=== PATIENT | female | born 1995 | race Caucasian/White ===

== ENCOUNTER 2017-02-28 07:31 | Day surgery (SDC) | payer BC ==
[~2017-02-28] VITALS: Ht 180.3 cm; Wt 72.6 kg
[2017-02-28 07:41] VITALS: BP 131/62; Ht 180.3 cm; Wt 72.6 kg
[2017-02-28 09:04] LABS: HEMOGLOBIN 12.8 g/dL (12-16); MCH 29.2 pg (26.0-34.0); MCHC 32.8 g/dL (31.0-37.0); MEAN PLATELET VOLUME 12.2 fL (7.4-10.4); RBC 4.38 10x6/uL (4.00-5.40); RDW 12.5 % (11.5-14.5); WBC 6.5 10x3/uL (4.8-10.8)
[2017-02-28 09:37] LABS: HCG URINE NEGATIVE (NEGATIVE)
[2017-02-28] MEDS ORDERED: HYDROCODONE-APA1 TAB PO (10:29)
--- NOTE | 2017-02-28 10:48 | NUR ---
1045 LIQUID DIET SERVED
--- NOTE | 2017-02-28 12:56 | NUR ---
1040 SNACK SERVED 1050 DENIES NAUSEA; IV DC'D 1110 DISCHARE INSTRUCRIONS REVIEWED WITH PATIENT; VERBALIZED UNDERSTANDING. TO B/R; VOIDED MOD AMT
--- NOTE | 2017-03-04 10:12 | OP ---
PATIENT NAME: AMISH PRABHAKAR MEDICAL RECORD: [id number] :97 LOCATION:[facility] ADMISSION DATE: SURGEON: YASSINE SOARES MD DATE OF OPERATION: 02/28/2017 Orthopedic Surgery Operative Note PREOPERATIVE DIAGNOSIS: Painful loose bodies in the left prepatellar bursa. POSTOPERATIVE DIAGNOSIS: Painful loose bodies in the left prepatellar bursa. PROCEDURE: Excision of painful loose bodies in the prepatellar bursa. SURGEON: Yassine Soares MD ANESTHESIA: TIVA. INTRAOPERATIVE COMPLICATIONS: None. SUMMARY OF PATHOLOGIC FINDINGS: The patient had a painful harden soft tissue in the prepatellar bursa. OPERATIVE SUMMARY IN DETAIL: After obtaining the appropriate preoperative orthopedic surgery consents as well as anesthetic consultation, evaluation and clearance, the patient was brought to the operating room and placed on the operating table in supine position. After adequate TIVA anesthesia was administered. The area of concern was locally infiltrated with 0.25% Marcaine with epinephrine and lidocaine mixture. An incision was made into the prepatellar bursa where the patient's hard fibers loose bodies were found, they were not attached and they were removed easily. After these were removed, the entire area was irrigated and closed with 2-0 Vicryl followed by 4-0 Prolene. Pressure sterile dressings were applied. The patient was awakened, taken to recovery room in stable condition. All final needle and sponge counts were correct. TRANSINT:[id number] Voice Confirmation ID: [id number] DOCUMENT ID: [id number] YASSINE SOARES MD at 1012 CC: [id number] DICTATION DATE: 02/28/17 1027 NAIL WELTER: 02/28/17 1210 [facility] 02/28/17 [id number] [place] [address]
== END 2017-02-28 11:15 | disposition home or self-care (01) ==
LOC: D.OPS 07:31 → D.PAN 10:15 → D.OPS 11:15 → D.PAN 11:45
PROVIDERS: Anesthesiology; Orthopaedic Surgery
DX: M23.42 Loose body in knee, left knee (principal)

== ENCOUNTER → 2017-09-03 14:36 | Outpatient (CLI) | payer BC ==
[2017-02-28 07:41] VITALS: BMI 22.3
[~2017-09-03 14:36] MED LIST: BENTYL10 MG PO; HYDROCODONE-APA1 TAB PO; OMEPRAZOLE40 MG PO
== END | disposition home or self-care (01) ==
LOC: D.US 14:36
DX: R11.2 Nausea with vomiting, unspecified (principal)

== ENCOUNTER → 2017-09-04 15:38 | Outpatient (CLI) | payer BC ==
[2017-02-28 07:41] VITALS: BMI 22.3
== END | disposition home or self-care (01) ==
LOC: D.CT 15:38
DX: R10.9 Unspecified abdominal pain (principal)

== ENCOUNTER → 2017-10-04 10:47 | Outpatient (CLI) | payer BC ==
[2017-02-28 07:41] VITALS: BMI 22.3
== END | disposition home or self-care (01) ==
LOC: D.CT 09-14 09:00
DX: R10.9 Unspecified abdominal pain (principal)

== ENCOUNTER 2017-11-06 10:18 | Day surgery (SDC) | payer BC ==
[~2017-11-06] VITALS: Ht 177.8 cm; Wt 70.5 kg
[~2017-11-06 10:18] MED LIST changes: -BENTYL10 MG PO; -OMEPRAZOLE40 MG PO
[2017-11-06 11:56] LABS: HEMATOCRIT 41.7 % (36.0-48.0); HEMOGLOBIN 13.7 g/dL (12-16); MCH 29.1 pg (26.0-34.0); MCHC 32.9 g/dL (31.0-37.0); MCV 88.7 fL (80.0-100.0); MEAN PLATELET VOLUME 11.2 fL (7.4-10.4); RBC 4.7 10x6/uL (4.00-5.40); RDW 13.1 % (11.5-14.5); WBC 8.8 10x3/uL (4.8-10.8)
[2017-11-06] MEDS ORDERED: OMEPRAZOLE40 MG PO (12:19)
[2017-11-06 12:20] VITALS: Ht 177.8 cm; Wt 70.5 kg
[2017-11-06 12:31] LABS: HCG URINE NEGATIVE (NEGATIVE)
--- NOTE | 2017-11-06 15:27 | NUR ---
1520 DISCHARGE INSTRUCTIONS COMPLETE. PT HAS NO QUESTIONS OR CONCERNS AT THIS TIME. ESCORTED OUT BY SONYA.
--- NOTE | 2017-11-14 11:51 | OP ---
PATIENT NAME: AMISH PRABHAKAR MEDICAL RECORD: [id number] :97 LOCATION:[facility] ADMISSION DATE: SURGEON: NORMA SUMMERS DO DATE OF OPERATION: 11/06/2017 PROCEDURE: EGD with biopsies. INDICATIONS FOR PROCEDURE: Nausea and vomiting, generalized abdominal pain, elevated liver enzymes, unspecified lymphadenitis, and abnormal weight loss. SCOPE: Olympus video gastroscope. MEDICATIONS: Propofol 180 mg IV per anesthesia. ESTIMATED BLOOD LOSS: Minimal. COMPLICATIONS: None. FINDINGS: Informed consent was given. The patient was made comfortable with the above medication. After reaching an adequate level of sedation by slow IV push, the patient was placed on her left side. The endoscope was then advanced under direct visualization through the mouth to the third portion of the duodenum. The scope was slowly withdrawn as the mucosa was carefully examined. The entire esophagus including the GE junction appeared normal. The endoscope was advanced beyond the GE junction into the stomach and retroflexed to view the cardia and fundus which appeared normal. There was no evidence of a hiatal hernia. The body of the stomach as well as the antrum and prepyloric region appeared normal without erosions, ulcerations, or granularity. Random biopsies were taken to submit for histology and to rule out H. pylori. The endoscope was advanced beyond the pylorus into the small intestine. The entire examined duodenum appeared normal without villous atrophy or appearances of an inflammation. Random biopsies were taken to submit for histopathology. The endoscope was withdrawn from the patient. The patient tolerated the procedure well and there were no complications. IMPRESSION: Normal upper endoscopy. PLAN AND RECOMMENDATIONS: 1. Discharge home when recovery parameters are met. 2. Follow up biopsy specimen results. 3. Continue current diet. 4. Continue current medications. Make sure the patient is taking 40 mg of omeprazole daily and continue this for 4-6 weeks. 5. If the biopsies are normal and the patient continues to experience nausea, vomiting and diarrhea, I would recommend a colonoscopy. It is possible that the patient's symptoms is related to mesenteric adenitis which has been resolving since being treated. TRANSINT:[id number] Voice Confirmation ID: [id number] DOCUMENT ID: [id number] OPERATIVE REPORT [id number] AMISH PRABHAKAR NORMA SUMMERS DO at 1151 CC: [id number] DICTATION DATE: 11/06/17 1432 APPLICATION PERFORMANCE ENGINEER: 11/06/17 1505 [facility] 11/06/17 [facility] [address] [place] [address]
== END 2017-11-06 15:20 | disposition home or self-care (01) ==
LOC: D.OPS 10:18
PROVIDERS: Anesthesiology; Internal Medicine Gastroenterology
DX: R11.2 Nausea with vomiting, unspecified (principal); R74.8 Abnormal levels of other serum enzymes; I88.9 Nonspecific lymphadenitis, unspecified; R63.4 Abnormal weight loss; K21.9 Gastro-esophageal reflux disease without esophagitis; Z01.812 Encounter for preprocedural laboratory examination

== ENCOUNTER → 2017-11-14 07:21 | Outpatient (CLI) | payer BC ==
[2017-11-06 12:20] VITALS: BMI 22.2
[~2017-11-14 07:21] MED LIST changes: +BENTYL10 MG PO; +OMEPRAZOLE40 MG PO
== END | disposition home or self-care (01) ==
LOC: D.NM 11-13 13:00
DX: R11.2 Nausea with vomiting, unspecified (principal)

== ENCOUNTER → 2017-11-21 10:23 | Outpatient (CLI) | payer BC ==
[2017-11-06 12:20] VITALS: BMI 22.2
[2017-11-21 11:29] LABS: ALBUMIN 4.5 g/dL (3.4-5.0); ALKALINE PHOSPHATASE 106 U/L (46-116); ALT (SGPT) 22 U/L (10-68); BILIRUBIN - TOTAL 0.52 mg/dL (0.2-1.3); CALC OSMOLALITY 282 mosm/kg (275-300); CALCIUM 9.7 mg/dL (8.5-10.1); CHLORIDE - SERUM 104 mmol/L (98-107); GLUCOSE 90 mg/dL (74-106); LIPASE 94 U/L (73-393); POTASSIUM - SERUM 4.1 mmol/L (3.5-5.1); PROTEIN - SERUM 7.7 g/dL (6.4-8.2); SODIUM 142 mmol/L (136-145); UREA NITROGEN 13 mg/dL (7-18); eGFR NON AFRICAN AMERICAN 75 mL/min (90-120)
== END | disposition home or self-care (01) ==
LOC: D.LAB 10:23 → D.NM 10:45
PROVIDERS: Internal Medicine Gastroenterology
DX: R19.7 Diarrhea, unspecified (principal); R11.2 Nausea with vomiting, unspecified; R10.9 Unspecified abdominal pain

== ENCOUNTER 2017-12-16 06:31 | Day surgery (SDC) | payer BC ==
[~2017-12-16] VITALS: Ht 177.8 cm; Wt 70.0 kg
--- NOTE | ~2017-12-16 | OP ---
PATIENT NAME: AMISH PRABHAKAR MEDICAL RECORD: [id number] :97 LOCATION:[facility] ADMISSION DATE: SURGEON: NORMA SUMMERS DO DATE OF OPERATION: 12/16/2017 PROCEDURE: Colonoscopy with biopsies. INDICATION FOR PROCEDURE: 1. Generalized abdominal pain, history of lymphadenitis on CT scan, status post antibiotic therapy. 2. Abnormal weight loss. 3. Nausea and vomiting. SCOPE: Olympus video pediatric colonoscope. MEDICATIONS: Propofol 340 mg IV per anesthesia. WITHDRAWAL TIME: 10 minutes. ESTIMATED BLOOD LOSS: Minimal. COMPLICATIONS: None. FINDINGS: Informed consent was given. The patient was made comfortable with the above medication. After reaching an adequate level of sedation by slow IV push, the patient was placed on her left side. A digital rectal examination was performed and was normal. The endoscope was then advanced under direct visualization through the rectum to the terminal ileum. The scope was slowly withdrawn and mucosa was carefully examined. The prep quality was good. There were no polyps, diverticula, ulcers, or other abnormalities visualized on today's examination. Stool was collected during the examination to submit for infectious purposes and random biopsies were taken to submit for histopathology to rule out microscopic colitis. Retroflexion was performed in the rectum with a normal-appearing rectal wall. The endoscope was then withdrawn from the patient. The patient tolerated the procedure well and there were no complications. IMPRESSION: Normal colonoscopy to terminal ileum. Biopsies were taken and stool was collected. PLAN AND RECOMMENDATIONS: 1. Discharge home when recovery parameters are met. 2. High-fiber diet. 3. Recall colonoscopy at age 52 for colon cancer screening purposes. 4. Followup in GI clinic as needed for symptoms. TRANSINT:[id number] Voice Confirmation ID: [id number] DOCUMENT ID: [id number] OPERATIVE REPORT [id number] AMISH PRABHAKAR NORMA SUMMERS DO at 1616 CC: [id number] DICTATION DATE: 12/16/17 0855 RADIO OFFICER: 12/16/17 1401 [facility] 12/16/17 [facility] [address] [place] [address]
[~2017-12-16 06:31] MED LIST changes: -BENTYL10 MG PO
[2017-12-16 07:18] LABS: HEMATOCRIT 45.6 % (36.0-48.0); HEMOGLOBIN 14.9 g/dL (12-16); MCH 29.5 pg (26.0-34.0); MCHC 32.7 g/dL (31.0-37.0); MCV 90.3 fL (80.0-100.0); MEAN PLATELET VOLUME 11.9 fL (7.4-10.4); RBC 5.05 10x6/uL (4.00-5.40); RDW 13.3 % (11.5-14.5); WBC 9.6 10x3/uL (4.8-10.8)
[2017-12-16 07:21] VITALS: BP 109/76; Ht 177.8 cm; Wt 70.0 kg
[2017-12-16 07:28] LABS: HCG URINE NEGATIVE (NEGATIVE)
[2017-12-16] MEDS ORDERED: BENTYL10 MG PO (09:07)
== END 2017-12-16 09:55 | disposition home or self-care (01) ==
LOC: D.OPS 06:31
PROVIDERS: Anesthesiology; Internal Medicine Gastroenterology
DX: R10.84 Generalized abdominal pain (principal); R63.4 Abnormal weight loss; R11.2 Nausea with vomiting, unspecified; Z01.812 Encounter for preprocedural laboratory examination

== ENCOUNTER → 2020-07-28 08:00 | Outpatient (CLI) | payer BC ==
[~2020-07-28 08:00] MED LIST changes: +BENTYL10 MG PO
== END | disposition home or self-care (01) ==
LOC: D.US 08:00
PROVIDERS: ATTEND Family Medicine
DX: R94.6 Abnormal results of thyroid function studies (principal)

== ENCOUNTER 2020-09-07 15:28 | Outpatient (CLI) | payer BC ==
[~2020-09-07] VITALS: Ht 175.3 cm; Wt 60.3 kg
[2020-09-07 16:04] VITALS: Ht 175.3 cm; Wt 60.3 kg
--- NOTE | 2020-09-07 17:46 | NUR ---
1739 INFUSION OF GENTAMYCIN HAS COMPLETED, LINE FLUSHED WITH 10CC NS AND PRN ADAPTER CAPPED WITH ALCHOL CAP. REG DIET HAS ARRIVED AND SERVED.
== END 2020-09-07 17:52 | disposition home or self-care (01) ==
LOC: D.OPS 15:28
PROVIDERS: ATTEND Family Medicine
DX: A21 Tularemia (principal)

== ENCOUNTER 2020-09-08 12:24 | Outpatient (CLI) | payer BC ==
[~2020-09-08] VITALS: Ht 175.3 cm; Wt 60.4 kg
[2020-09-08 13:11] VITALS: Ht 175.3 cm; Wt 60.4 kg
== END 2020-09-08 14:55 ==
LOC: D.OPS 12:24
PROVIDERS: ATTEND Family Medicine
DX: D64.9 Anemia, unspecified (principal)

== ENCOUNTER 2020-09-09 13:00 | Outpatient (CLI) | payer BC ==
[~2020-09-09] VITALS: Ht 175.3 cm; Wt 60.4 kg
[2020-09-09 14:04] VITALS: Ht 175.3 cm; Wt 60.4 kg
== END 2020-09-09 15:45 | disposition home or self-care (01) ==
LOC: D.OPS 13:00
PROVIDERS: ATTEND Family Medicine
DX: A21.9 Tularemia, unspecified (principal)

== ENCOUNTER 2020-09-10 10:44 | Outpatient (CLI) | payer BC ==
[~2020-09-10] VITALS: Ht 175.3 cm; Wt 59.0 kg
[2020-09-10 12:15] VITALS: BP 129/66; Ht 175.3 cm; Wt 59.0 kg
--- NOTE | 2020-09-10 13:00 | NUR ---
REC INFUSION OF GENT 300 PER L WRIST SL, DEZ WELL, FLUSHED AND D/C HOME TO RETURN TOMORROW
== END 2020-09-10 14:04 ==
LOC: D.OPS 10:44 → D.MS 11:06 → D.OPS 14:04
PROVIDERS: ATTEND Family Medicine
DX: A21.9 Tularemia, unspecified (principal)

== ENCOUNTER 2020-09-11 10:16 | Outpatient (CLI) | payer BC ==
[~2020-09-11] VITALS: Ht 175.3 cm; Wt 61.4 kg
--- NOTE | 2020-09-11 11:15 | NUR ---
PT ARRIVES TO ROOM, SL RESITED TO LFA, DEZ WELL, GENT INFUSING
--- NOTE | 2020-09-11 11:45 | NUR ---
ABT COMPLETED, DEZ WELL, WALKED FROM UNIT WITH SL IN PLACE TO LFA
[2020-09-11 11:52] VITALS: BP 119/72; Ht 175.3 cm; Wt 61.4 kg
[2020-09-11 12:12] LABS: GENTAMICIN - RANDOM 22.1 ug/mL (0.5-2.0)
--- NOTE | 2020-09-11 12:18 | NUR ---
CRITICAL GENT LEVEL CALLED, PHARMACY AWARE, LABS WERE DRAWN DURING INFUSION,
== END 2020-09-11 14:09 ==
LOC: D.OPS 10:16 → D.MS 10:17 → D.OPS 14:09
PROVIDERS: ATTEND Family Medicine
DX: A21.9 Tularemia, unspecified (principal)

== ENCOUNTER 2020-09-12 10:43 | Outpatient (CLI) | payer BC ==
[~2020-09-12] VITALS: Ht 175.3 cm; Wt 59.1 kg
[2020-09-12 12:43] VITALS: BP 96/57; Ht 175.3 cm; Wt 59.1 kg
--- NOTE | 2020-09-12 14:17 | NUR ---
PATIENT HAS NO SIGNS OR SYMPTOMS OF REACTION TO GENTAMICIN, PATIENT DISCHARGED WITH LEFT FOREARM PIV INTACT, FLUSHED. PATIENT AMBULATES OFF UNIT.
== END 2020-09-12 14:17 | disposition home or self-care (01) ==
LOC: D.OPS 10:43
PROVIDERS: ATTEND Family Medicine
DX: A21.9 Tularemia, unspecified (principal)

== ENCOUNTER 2020-09-13 13:11 | Outpatient (CLI) | payer BC ==
[~2020-09-13] VITALS: Ht 177.8 cm; Wt 59.1 kg
[2020-09-13 13:47] VITALS: Ht 177.8 cm; Wt 59.1 kg
--- NOTE | 2020-09-13 14:02 | NUR ---
1315 PT HERE FOR ABX INFUSION. 1335 PT HAS AN INT IN LEFT ARM THAT SHE STATES WAS STARTED ON SATURDAY FOR ABX THERAPY. IV FLUSHED WITH 10CC NS. UNABLE TO GET A BLOOD RETURN BUT PT STATES THAT SHE CAN "TASTE THE NS"
--- NOTE | 2020-09-13 15:30 | NUR ---
1351 IV DC'D. CATHETER TIP INTACT. NO BLEEDING AT SITE AFTER HOLDING PRESSURE BUT A SMALL HEMATOMA NOTED BELOW IV SITE. WRAPPED IV SITE WITH COBAN. NO INCREASED SWELLING AT THIS TIME.
== END 2020-09-13 13:59 | disposition home or self-care (01) ==
LOC: D.OPS 13:11
PROVIDERS: ATTEND Family Medicine
DX: A21 Tularemia (principal)